=== PATIENT | female | born 2000 | race Two or more races ===

== ENCOUNTER 2020-12-19 19:06 | Emergency (ER) | payer OTHER ==
[2020-12-19 20:12] LABS: HEMOGLOBIN 15.2 gm/dl (12.3-15.3); RED BLOOD COUNT 4.82 M/UL (4.00-5.10); WHITE BLOOD COUNT 7.8 K/UL (4.5-11.0)
[2020-12-19 20:20] LABS: BUN/CREATININE RATIO 11 (0-10)
[2020-12-19] MEDS ORDERED: CARAFATE 1 GM TA1 GM PO (23:03)
[2020-12-19] MEDS ORDERED: ONDANSETRON ODT4 MG SL (23:11)
== END 2020-12-19 23:01 | disposition home or self-care (01) ==
LOC: ER1 19:06
PROVIDERS: Physician Assistant
DX: N83.202 Unspecified ovarian cyst, left side (principal); R00.0 Tachycardia, unspecified; R63.4 Abnormal weight loss
CPT/HCPCS: 80053; 81001; 82550; 82553; 83690; 83874; 84484; 84703; 85025; 85379; 93005; 99284; J7030; Q9967